=== PATIENT | female | born 1960 | race Caucasian/White ===

== ENCOUNTER → 2020-02-16 13:43 | Outpatient (CLI) | payer OTHER, SELFPAY | PROVIDERS: PCP Registered Nurse; Visit Provider Registered Nurse | DX: N39.0 Urinary tract infection, site not specified (principal) | CPT/HCPCS: 87077; 87086 ==

== ENCOUNTER → 2020-03-12 07:17 | Outpatient (CLI) | payer OTHER, SELFPAY ==
[2020-03-12 07:37] LABS: Add Manual Diff / Slide Review NO; Basophils Absolute Auto 0 /uL (0-100); Basophils Percent Auto 0.5 % (0-2); Eosinophils Absolute Auto 100 /uL (0-450); Eosinophils Percent Auto 1.7 % (2-4); Hematocrit 45.4 % (36-46); Hemoglobin 15.2 g/dL (12.0-16.0); Lymphocytes Absolute Auto 1400 /uL (1100-4500); Lymphocytes Percent Auto 21.9 % (25-40); Mean Corpuscular HGB Conc 33.5 % (30-36); Mean Corpuscular Hemoglobin 27.3 PG (26-34); Mean Corpuscular Volume 81.4 fL (80-100); Monocytes Absolute Auto 400 /uL (0-900); Monocytes Percent Auto 5.6 % (3-14); Neutrophils Absolute Auto 4500 /uL (1500-7000); Neutrophils Percent Auto 70.3 % (50-75); Platelet Count 132 X10^3/uL (150-400); Red Blood Cell Count 5.57 X10^6/uL (4.0-5.2); Red Cell Distribution Width 12.9 % (11.6-14.8); White Blood Cell Count 6.4 X10^3/uL (4.5-11.0)
[2020-03-12 07:40] LABS: Appearance Urine UA CLEAR; Bilirubin Urine UA NEGATIVE (NEGATIVE); Color Urine UA YELLOW; Glucose Urine UA 2+ g/dL (Negative); Ketones Urine UA NEGATIVE (NEGATIVE); Leukocyte Esterase Urine UA NEGATIVE (NEGATIVE); Nitrite Urine UA NEGATIVE (Negative); Occult Blood Urine UA NEGATIVE (Negative); Protein Urine UA TRACE (Negative); Urobilinogen Urine UA 0.2 E.U./dL (0.2)
[2020-03-12 07:43] LABS: Hemoglobin A1C% w Est Avg Glu 13.2 % (4.0-6.0)
[2020-03-12 08:43] LABS: Alanine Aminotransferase 20 IU/L (<35); Albumin 3.9 g/dL (3.5-5.0); Albumin Globulin Ratio 1.3 (1.0-2.8); Alkaline Phosphatase 56 U/L (38-126); Aspartate Aminotransferase 18 IU/L (14-36); BUN Creatinine Ratio 31.9 (6-22); Bilirubin Total 0.6 mg/dL (0.2-1.3); Blood Urea Nitrogen 23 mg/dL (7-17); Calcium 9.5 mg/dL (8.4-10.2); Carbon Dioxide 31 mmol/L (22-32); Chloride 98 mmol/L (98-107); Cholesterol 214 mg/dL (140-199); Estimated Glomerular Filt Rate > 60.0 mL/min (>60); Globulin 3.1 g/dL (1.7-4.1); Glucose 380 mg/dL (80-110); HDL Cholesterol 42 mg/dL (40-60); HEMOLYSIS < 15 (0-50); LDL Cholesterol Calculated 129 mg/dL (<100); Potassium 4.3 mmol/L (3.4-5.1); Sodium 133 mmol/L (137-145); Triglycerides 216 mg/dL (35-150)
[2020-03-12 08:45] LABS: Creatinine Urine Random 92.4 mg/dL
[2020-03-12 08:48] LABS: Microalbumi Creatinin Ratio Ur 112.5 ug/mg CR (<30); Microalbumin Urine Random 10.4 mg/dL (0-1.6)
== END ==
PROVIDERS: PCP Registered Nurse; Referring Provider Registered Nurse; Visit Provider Registered Nurse
DX: I10 Essential (primary) hypertension (principal); R30.0 Dysuria; Z82.49 Family history of ischemic heart disease and other diseases of the circulatory system; D69.6 Thrombocytopenia, unspecified; E11.9 Type 2 diabetes mellitus without complications
CPT/HCPCS: 36415; 80053; 80061; 81003; 82043; 82570; 83036; 85025

== ENCOUNTER → 2020-08-12 13:17 | Outpatient (CLI) | payer OTHER, SELFPAY ==
[2020-08-12 16:04] LABS: COVID19 -Nasal RAPID Negative (Negative)
== END ==
PROVIDERS: PCP Registered Nurse; Referring Provider Physician Assistant; Visit Provider Physician Assistant
DX: Z01.812 Encounter for preprocedural laboratory examination (principal); Z20.822 Contact with and (suspected) exposure to COVID-19
CPT/HCPCS: 87635

== ENCOUNTER → 2020-08-14 07:42 | Outpatient (CLI) | payer OTHER, SELFPAY ==
--- NOTE | 2020-08-14 | DI.NM.S_ITS ---
PROCEDURE: NM DONTRELL PERF SPECT REST & STR Rest and exercise myocardial perfusion SPECT with gated imaging and ejection fraction RADIOPHARMACEUTICAL: 14.5 mCi Tc-99m sestamibi IV at rest and 25.2 mCi Tc-99m sestamibi IV at peak exercise. A one day-protocol was performed. INDICATIONS: Precordial pain TECHNIQUE: Radiopharmaceutical was injected at peak stress test, and also at rest. SPECT images were obtained. SPECT myocardial perfusion images were displayed in short axis, horizontal long axis, and vertical long axis views. Gated images were reviewed using [employer] software. COMPARISON: None. CARDIAC STRESS: A standard Armen treadmill exercise tolerance test was performed by the patient under the supervision of an attending staff. The patient exercised for 6 minutes and 1 seconds; functional aerobic impairment (KASHIF) is +11%. Hemodynamic data: There is normal blood pressure and heart rate response to exercise stress. Patient achieved 82% of maximum predicted heart rate at peak exercise. Double product [place] [address], suggesting adequate stress test. Symptoms: Patient denied chest pain during exercise. EKG: Resting ECG show sinus rhythm with frequent PVCs. No diagnostic EKG changes of ischemia with exercise; no ectopy with exercise. FINDINGS: Raw data: There is good myocardial labeling by radiotracer. No significant motion artifacts. Qmtw-ha-seqtv ratio is 0.37 (normal is less than 0.38 for sestamibi tracer, and less than 0.50 for thallium tracer). Left ventricle function: Gated images show hypokineis of the apical cap. No transient ischemic dilation; TID is 0.88 (normal less than 1.3). The left ventricle resting end-diastolic volume is 186 mL. Left ventricle stress ejection fraction is 48%; normal values are above 45%. Myocardial perfusion: There is a moderately intense apica defect at rest that becomes mild with stress, suggesting prior non-transmural infarct. No ischemia. No significant improvement with stress prone imaging. IMPRESSION: Abnormal nuclear stress test consistent with prior apical infarct. No ischemia. 1) There is a moderately intense apica defect at rest that becomes mild with stress, suggesting prior non-transmural infarct. No ischemia. No significant improvement with stress prone imaging. 2) Enlarged left ventricular (EDV 186cc) with mildly reduced systolic function (EF post stress 48%). The apical cap hypokinesis noted. 3) No ECG evidence of ischemia. 4) No angina during the study. 5) Mildly reduced exercise tolerance (6.1METS, KASHIF +11%). While only 82% of maximum predicted heart rate was reached, study [place] [address]. 6) No prior nuclear stress test available for comparison. Dictated by: Chon Davila MD on 08/14/2020 at 16:55 Approved by: Chon Davila MD on 08/14/2020 at 17:02
--- NOTE | 2020-08-14 15:20 | PM.TREADMILL ---
Cardiac Stress Test Report Referral & Results Date Patient Seen: 08/14/20 Time Patient Seen: 15:20 Requesting provider: Chon Davila Indication: precordial pain Rest ECG: sinus rhythm, rbbb, nonspecific st changes Procedure Note: Standard Armen protocol, 6:01, 6.1 METS Submaximal stress test, patient did not achieve target heart rate Reduced exercise capacity, KASHIF +11% Normal hemodynamic response to exercise; hypertensive at baseline No chest pain or anginal symptoms No significant ST changes at peak exercise Frequent PVCs Impression: Submaximal exercise stress test Please note: Actual ECG tracings can be found in the PACS system.
== END ==
PROVIDERS: PCP Student in an Organized Health Care Education/Training Program; Referring Provider Student in an Organized Health Care Education/Training Program; Visit Provider Internal Medicine Cardiovascular Disease
DX: R07.2 Precordial pain (principal); R94.39 Abnormal result of other cardiovascular function study
CPT/HCPCS: 78452; 93017; A9502

== ENCOUNTER → 2020-09-13 07:14 | Outpatient (CLI) | payer OTHER, SELFPAY ==
--- NOTE | 2020-09-13 07:15 | DI.US.S_ITS ---
PROCEDURE: US PELVIC COMPLETE INDICATIONS: RE-EVALUATE UTERINE POLYP TECHNIQUE: Real-time scanning was performed of the pelvic organs, with image documentation. Additional endovaginal scanning was necessary due to incomplete visualization of the adnexal and endometrial structures by transabdominal scanning. COMPARISON: [facility], CT, ABDOMEN/PELVIS WITH CONTRAST, 02/17/2016, 13:57. FINDINGS: Uterus: Uterus is anteverted and normal in size at 5.0 x 7.3 x 0.9 cm. The endometrium measures 9.0 mm in combined thickness, abnormal in a postmenopausal patient.. There is a mass within the endometrial canal, measuring up to 2.8 x 4.3 x 5.5 cm. Ovaries: Not seen. Other: No pathologic free abdominal or pelvic fluid. IMPRESSION: Mildly heterogeneous mass lesion is identified within the endometrial canal, measuring up to 2.8 x 4.3 x 5.5 cm. Please note that a mass was seen within the endometrial canal on prior CT scanning from 02/17/16. Its size at that time was reported as 4.2 cm and therefore this mass appears to have enlarged. Dictated by: Preston Alves M.D. on 09/13/2020 at 11:07 Approved by: Preston Alves M.D. on 09/13/2020 at 11:13
== END ==
PROVIDERS: PCP Student in an Organized Health Care Education/Training Program; Referring Provider Obstetrics & Gynecology; Visit Provider Obstetrics & Gynecology
DX: R10.2 Pelvic and perineal pain (principal); R19.09 Other intra-abdominal and pelvic swelling, mass and lump
CPT/HCPCS: 76830; 76856

== ENCOUNTER 2020-11-19 07:15 | Day surgery (SDC) | payer OTHER, SELFPAY ==
[2020-10-30 10:38] VITALS: BMI 36.1
[2020-11-19] VITALS (9 sets, daily range): BP systolic 117–153; BP diastolic 56–91; PULSE 74–87; RESP 12–18; TEMP 36.1–36.7; O2SAT 94–100; BMI 36.5
--- NOTE | 2020-11-19 | PATH_ITS ---
[facility] Accession Number: [id number] . 01 Material submitted: . PART A: endometrium - ENDOMETRIAL POLYP PART B: vagina - LEFT VAGINAL BIOPSY . 02 Diagnosis: A. Endometrial Polyp: Small fragments of endometrial tissue with cystic atrophy; negative for glandular hyperplasia, cytologic atypia, or malignancy. Abundant fragments of myometrium; negative for atypia or malignancy. Histologic findings are most consistent with a leiomyoma. Squamous mucosa with reactive features; negative for dysplasia or malignancy. Negative for p16 block immunostaining. . B. Left Vaginal Biopsy: Involvement by low-grade squamous intraepithelial lesion / VAIN-1; condylomatous growth pattern. Negative for p16 block immunostaining. MRV 11/22/2020 1453 Local . 02 Electronically signed: . Madison Flores MD, Pathologist NPI- [id number] . 01 Gross description: . Part A: ENDOMETRIAL POLYP: Received in formalin are multiple fragment(s) of dey, soft tissue measuring 5.0 x 3.5 x 1.5 cm in aggregate submitted entirely in 4 cassette(s) Part B: LEFT VAGINAL BIOPSY: Received in formalin is 1 fragment(s) of dey, soft tissue measuring 0.9 x 0.7 x 0.2 cm submitted entirely in 1 cassette(s) /BECKY 11/20/2020 0429 Local . 02 Microscopic: . An immunohistochemical stain for p16 is performed on blocks A4 and B1 to evaluate for block reactivity and is negative. The control stained with appropriate reactivity. . The absence of p16 block immunostaining mitigates against the presence of high risk HPV DNA in this biopsy. . * This test was developed and its performance characteristics determined by [facility]. It has not been cleared or approved by the U.S. Food and Drug Administration. The FDA has determined that such clearance or approval is not necessary. This test is used for clinical purposes. It should not be regarded as investigational or for research. . 02 Pathologist provided ICD-10: N84.0, A63.0, N89.0 . 02 CPT . 343796, 654101, Q88309 Performed at: 01 [facility] [address] [id number] MD Tramaine Hardin MD Phone: [phone] Performed at: 02 [facility] [id number] [place] [id number] MD Livier Obrien MD Phone: [phone]
[2020-11-19 08:09] LABS: COVID19 -Nasal RAPID Negative (Negative)
[2020-11-19] MEDS: LACTATED RINGERS 1,000 ML 100 ML IV ×2 (08:48→10:52)
--- NOTE | 2020-11-19 09:16 | SUR.OPER ---
Lithotomy on padded OR bed, head on pillow, arms secured on padded arm boards at <90 degrees abduction. Legs secured in padded yellow fins stirrups.
--- NOTE | 2020-11-19 09:16 | PM.HP.1 ---
History of Present Illness History of Present Illness Date Patient Seen: 11/19/20 Time Patient Seen: 09:16 Chief complaint: SDC Narrative: Patient is a 60-year-old 2 para 2 with condyloma acuminata of the external genitalia, and a large endometrial polyp. She presents today for a D&C hysteroscopy with resection of the polyp and carbon dioxide laser vaporization of the condyloma acuminata of the external genitalia. Patient History Medical History (Updated 11/19/20 @ 08:50 by Hemalatha Victoria RN) Anxiety and depression Asthma Autoimmune hemolytic anemia with immune thrombocytopenia CAD (coronary artery disease) Chronic ITP (idiopathic thrombocytopenic purpura) Diabetes History of myocardial infarction HLD (hyperlipidemia) RBBB (right bundle branch block) Surgical History (Updated 10/30/20 @ 13:32 by Alida Workman RN) History of surgery Family & Social History Social History: household members spouse Tobacco & Substance use: Smoking Status Never smoker alcohol intake current alcohol intake frequency holiday/special occasion Substance Use Type does not use Meds Home Medications and Allergies Home Medications Medication Instructions Recorded Confirmed Type hydrochlorothiazide 12.5 mg capsule 12.5 mg PO DAILY #30 cap 02/16/20 11/19/20 Rx albuterol sulfate 90 mcg/actuation 2 puff INHALATION Q6H PRN 09/23/20 11/19/20 History aerosol inhaler fluticasone propionate 50 1 spray INTRANASAL DAILY 09/23/20 11/19/20 History mcg/actuation nasal spray,suspension insulin glargine 100 unit/mL 10 unit SUBCUT BEDTIME 09/23/20 11/19/20 History subcutaneous solution (Lantus U-100 Insulin) loratadine-pseudoephedrine ER 10 1 tab PO DAILY 09/23/20 11/19/20 History mg-240 mg tablet,extended [id number] (Claritin-D 24 Hour) losartan 50 mg tablet 100 mg PO DAILY 09/23/20 11/19/20 History dulaglutide 1.5 mg/0.5 mL 1.5 mg SUBCUT QWEEK 10/30/20 11/19/20 History subcutaneous pen injector (Trulicity) Allergies Allergy/AdvReac Type Severity Reaction Status Date / Time Sulfa (Sulfonamide Allergy Intermediate HIVES Verified 11/19/20 08:32 Antibiotics) [SULFA (SULFONAMIDE ANTIBIOTICS)] metoprolol AdvReac Severe other Verified 11/19/20 08:32 Tauwcty-Kig-Qka Reductase AdvReac Verified 11/19/20 08:32 Inhibitor Exam Vital Signs (past 8 hours): - 11/19/20 08:40 Temperature 97.0 F L Pulse Rate 87 Respiratory Rate 16 Blood Pressure 153/91 H Pulse Oximetry 100 Oxygen Delivery Method Room Air Narrative Exam Narrative: HEENT: No thyromegaly, no anterior cervical or supraclavicular lymphadenopathy. Lungs:Clear to auscultation bilaterally, no wheezes. Cardiovascular: Regular rate and rhythm, no murmurs, rubs, or gallops. Abdomen: Well-healed abdominoplasty scars. No hepatosplenomegaly. No masses palpable. External genitalia: Multiple condyloma acuminata Vagina: Normal Cervix: Normal Bimanual exam: 6 Week size anteverted uterus. Mobile.] No adnexal masses or tenderness Objective Labs Labs: Laboratory Results - last 24 hr 11/19/20 07:54 SARS-CoV-2 (PCR) Negative Assessment & Plan Assessment & Plan narrative: Assessment: 60-year-old 2 para 2 with condyloma acuminata of the external genitalia and a large endometrial polyp Plan: D&C hysteroscopy with polypectomy and CO2 laser vaporization of the condyloma acuminata The risks, benefits, and alternatives to the procedure were explained to the patient. The risks including bleeding, infection, and uterine perforation. She understands these risks and agrees to proceed. A full par Q was held and consent form was signed. COVID-19 COVID-19 status: Negative Result date/Date tested (Pos, Neg/Pending): 11/19/20 Time Spent With Patient Time with patient: less than 15 minutes
--- NOTE | 2020-11-19 09:19 | PM.PREOP ---
Pre-operative Note COVID-19 COVID-19 status: Negative Result date/Date tested (Pos, Neg/Pending): 11/19/20 Interval Note History & Physical reviewed/Exam performed by Physician: Yes Changes to H&P: No H&P completed within 30 days and has changed as indicated here:: 11/19/20
[2020-11-19] MEDS: SILVER SULFADIAZINE 1% CREAM 25 GM 1 APPLIC TOP (10:56)
--- NOTE | 2020-11-19 11:25 | P.OP_ITS ---
Operative Date/Time/Diagnoses Date of procedure: 11/19/20 Time of procedure: 11:25 Pre-op diagnosis: Postmenopausal bleeding Endometrial polyp Condyloma acuminata Post-op diagnosis: same Procedure & Clinicians Procedure: Procedures Operation Date: 11/19/20 09:15 Actual Procedure Side Surgeon p Hysteroscopy D&C w/ resection of endometrial polyp, C02 laser vaporization of vaginal condylomas Not Applicable Alice Liriano MD Indications: Postmenopausal bleeding Endometrial polyp Condyloma acuminata Surgeon: Alice Liriano Anesthesia Type: General (LMA) Operative Notes Findings: 8 week size anteverted uterus Both fallopian tube ostia observed Large flattened polyp originating from the posterior wall of the uterus Multiple condyloma acuminata the largest 1 measuring 1 cm x 1 cm at the introitus and left vaginal wall Closure Type: not applicable Specimen(s): endometrial curettings, endometrial polyp and other (Biopsy of left vaginal wall) Estimated blood loss (mL): 10 Blood products transfused: none Procedure in detail: After informed consent was obtained, the patient was taken to the operating room where she was placed in the dorsal supine position. After adequate LMA general anesthesia was achieved, she was placed in the dorsal lithotomy position, and prepped and draped in the usual sterile fashion. A time-out was performed. A bivalve speculum was placed into the vagina and the anterior lip of the cervix was grasped with a single-tooth tenaculum. The cervical os was sequentially dilated to the # 9 Hegar dilator. The hysteroscope passed easily into the endometrial cavity. Both fallopian tube ostia were obs erved. There was a large polyp originating from the lower posterior wall of the uterus extending almost to the fundus of the uterus. The hysteroscope was removed from the uterus and the resectoscope passed easily into the endometrial cavity. Sorbitol was used. The polyp was resected in approximately 20 pieces. The settings were 60 cut and 40 cautery. The base of the polyp was cauterized for hemostasis. The fluid deficit was 750 cc. The resectoscope was removed from the uterus. The single-tooth tenaculum was removed from the anterior lip of the cervix. The bivalve speculum was removed from the vagina. Attention was then turned to the introitus. A moistened 4 x 4 was placed over the rectum. There was a large patch of condyloma at the left vaginal wall. This was excised with a #15 blade and sent for pathology. Using the CO2 laser, with a spot size of 5 mm and at 5 w, the condyloma acuminata were vaporized. This included the large patch on the left side as well as a smaller patch on the right side and 3 smaller patches in the midline at the introitus. The eschar was removed. Silvadene cream was placed over the wounds. Sponge, lap, and instrument counts were correct x2. The patient tolerated the procedure well, and was taken to PACU in stable condition. Complications: none Post-operative Condition: stable Disposition: PACU Plan for aftercare: Home after recovery
[2020-11-19] MEDS: ONDANSETRON 4 MG/2 ML INJ IV (11:45)
[2020-11-19 12:04] LABS: BUN Creatinine Ratio 24.5 (6-22); Blood Urea Nitrogen 25 mg/dL (7-17); Calcium 9.3 mg/dL (8.4-10.2); Carbon Dioxide 29 mmol/L (22-32); Chloride 104 mmol/L (98-107); Estimated Glomerular Filt Rate 55.1 mL/min (>60); Glucose 150 mg/dL (80-110); HEMOLYSIS < 15 (0-50); Potassium 4.4 mmol/L (3.4-5.1); Sodium 138 mmol/L (137-145)
--- NOTE | 2020-11-19 12:38 | SUR.PHASEII ---
Addendum entered by Daiana Koehler R.N. 11/19/20 13:26: PATIENT REPORTS NAUSEA RESOLVED. ABLE TO EAT 8 SALTINE CRACKERS AND FINISH HER STEFANIA JANETH. PATIENT'S SILVADENE AND TEE BOTTLE PACKED UP AND SENT WITH HER. Addendum entered by Daiana Koehler R.N. 11/19/20 13:17: Dr. MARTINEZ CALLED TO CHECK ON PATIENT. REPORTS SHE HAS REVIEWED PATIENT'S LABS. SHE STATES PATIENT MAY DC HOME WITH TEE BOTTLE ORDERED. Original Note: NOTES: SPOKE WITH DR. GUTIERREZ ABOUT PATIENT'S LABS AND CONTINUED NAUSEA. ELECTROLYTES ALL WNL. ORDER FOR REGLAN AND OPEN UP FLUIDS R/T KIDNEY FUNCTION, PATIENT DEHYDRATED. LR RUNNING OPEN ORDERED. ENTERED REGLAN ORDER.
[2020-11-19] MEDS: METOCLOPRAMIDE 10 MG/2 ML INJ IV (12:48)
== END 2020-11-19 13:32 | disposition home or self-care (01) ==
PROVIDERS: Anesthesiology; PCP Student in an Organized Health Care Education/Training Program; Referring Provider Obstetrics & Gynecology; Visit Provider Obstetrics & Gynecology
PROC: 0UDB8ZZ Extraction of Endometrium, Via Natural or Artificial Opening Endoscopic (ICD-10-PCS; CPT 58558; principal; 2020-11-19 09:15)
DX: N89.0 Mild vaginal dysplasia (principal); N95.0 Postmenopausal bleeding; N84.0 Polyp of corpus uteri; A63.0 Anogenital (venereal) warts; E11.9 Type 2 diabetes mellitus without complications; J45.909 Unspecified asthma, uncomplicated; I25.10 Atherosclerotic heart disease of native coronary artery without angina pectoris; I25.2 Old myocardial infarction; Z79.4 Long term (current) use of insulin; Z20.822 Contact with and (suspected) exposure to COVID-19
CPT/HCPCS: 58558; 57135; 57065; 80048; 87635; J1100; J1885; J2405; J2704; J2765; J3010